=== PATIENT | female | born 1945 | race Caucasian/White ===

== ENCOUNTER 2016-10-13 09:54 | Inpatient (IN) | payer MEDICARE, OTHER ==
[~2016-10-13] VITALS: Ht 167.6 cm; Wt 70.8 kg
[2016-10-13] MEDS ORDERED: HYDROmorphone 1 MG/ML, 1ML ONE ×2 (10:16→11:05)
[2016-10-13] MEDS ORDERED: ONDANSETRON 2MG/ML, 2ML ONE (10:16)
[2016-10-13] MEDS: HYDROmorphone 1 MG/ML, 1ML IVPush PRN ×2 (10:26→11:07)
[2016-10-13] MEDS ORDERED: SODIUM CHLORIDE 0.9% 1,000ML IVBOLUS ONE ×2 (10:30→18:00)
[2016-10-13] MEDS ORDERED: ONDANSETRON 2MG/ML, 2ML IVPush ONE (10:30)
[2016-10-13 10:41] LABS: HEMOGLOBIN 14.3 g/dL (11.7-16.4)
[2016-10-13 10:53] LABS: ASPARTATE AMINO TRANSFERASE 105 U/L (15-37); BLOOD UREA NITROGEN 31 mg/dL (7-18)
[2016-10-13] MEDS ORDERED: OMEP-110 PO (10:53)
[2016-10-13] MEDS ORDERED: FLUO20CA8 PO (10:53)
[2016-10-13] MEDS ORDERED: CA C1TAB64 PO (10:53)
[2016-10-13] MEDS ORDERED: SIMV20TA3 PO (10:53)
[2016-10-13] MEDS ORDERED: OXYC-302 PO (10:53)
[2016-10-13] MEDS ORDERED: ANAS1TAB PO (10:53)
[2016-10-13] MEDS ORDERED: [UNRECOGNIZED DRUG - OTHER] PO (10:53)
[2016-10-13] MEDS ORDERED: ATEN25TA PO (10:53)
[2016-10-13] MEDS ORDERED: LORA1TAB PO (10:53)
[2016-10-13] MEDS ORDERED: TRAZ50TA18 PO (10:53)
[2016-10-13] MEDS ORDERED: vitamin B6 PO (10:53)
[2016-10-13] MEDS ORDERED: PROPOFOL 10 MG/ML, 20ML IVP ONE (12:00)
[2016-10-13] MEDS ORDERED: PROPOFOL 100 ML IV ONE (12:03)
[2016-10-13] MEDS ORDERED: PROPOFOL 10 MG/ML, 20ML ONE (12:04)
[2016-10-13] MEDS ORDERED: SODIUM CHLORIDE 0.9% 1,000 ML IV ONE (13:20)
[2016-10-13] MEDS ORDERED: SODIUM CHLORIDE FLUSH 10ML SYR IVF PRN (13:30)
[2016-10-13] MEDS ORDERED: CEFTRIAXONE PMX 1GM/50ML 50 ML IVPB ONE (14:00)
[2016-10-13] MEDS ORDERED: CEFTRIAXONE PMX 1GM/50ML 50 ML ONE (14:26)
[2016-10-13 14:28] LABS: ICTOTEST NEGATIVE
[2016-10-13] MEDS ORDERED: DILTIAZEM 5 MG/ML, 5ML IV ONE (14:30)
[2016-10-13] MEDS ORDERED: OMNIPAQUE 350 MG/ML, 100ML BOTTLE ONE (15:01)
[2016-10-13 15:04] LABS: IS PT STATUS REG ER OR PRE ER? YES
[2016-10-13] MEDS ORDERED: DILTIAZEM 5 MG/ML, 5ML ONE (15:06)
[2016-10-13] MEDS ORDERED: PROPOFOL 10 MG/ML, 20ML IVPush ONE (15:30)
[2016-10-13] MEDS ORDERED: HEPARIN 5,000 UNITS/ML, 1ML ONE (15:57)
[2016-10-13] MEDS ORDERED: HEPARIN 25,000 UNITS/500ML PMX 500 ML ONE (15:57)
[2016-10-13] MEDS ORDERED: HEPARIN 5,000 UNITS/ML, 1ML IV ONE (16:00)
[2016-10-13] MEDS ORDERED: HEPARIN 5,000 UNITS/ML, 1ML IV PRN (16:00)
[2016-10-13] MEDS ORDERED: ASPIRIN 325 MG TABLET PO SCH (16:00)
[2016-10-13] MEDS: HEPARIN 25,000 UNITS/500ML PMX 500 ML IV PRN (16:59)
[2016-10-13] MEDS ORDERED: ASPIRIN 325 MG TABLET ONE (17:16)
[2016-10-13] MEDS: NOREPINEPHRINE 4 MG in SODIUM CHLORIDE 0.9% 246 ML IV PRN (17:22)
[2016-10-13] MEDS ORDERED: NOREPINEPHRINE 4 MG in SODIUM CHLORIDE 0.9% 246 ML IV PRN (17:30)
[2016-10-13] MEDS ORDERED: ASPIRIN 325 MG TABLET PO ONE (18:14)
[2016-10-13] MEDS ORDERED: PHARMACOKINETIC CONSULTATION MC ONE (20:00)
[2016-10-13] MEDS ORDERED: BISACODYL 10 MG SUPP PR PRN (20:00)
[2016-10-13] MEDS ORDERED: DOCUSATE 100 MG CAPSULE PO PRN (20:00)
[2016-10-13] MEDS ORDERED: PHARMACOKINETIC MONITORING MC PRN (20:00)
[2016-10-13] MEDS ORDERED: ONDANSETRON 2MG/ML, 2ML IVP PRN (20:00)
[2016-10-13] MEDS ORDERED: VANCOMYCIN PER PHARMACY MC PRN (20:00)
[2016-10-13] MEDS ORDERED: POLYETHYLENE GLYCOL 17 GM PACKET PO PRN (20:00)
[2016-10-13] MEDS ORDERED: VANCOMYCIN 1,500 MG in SODIUM CHLORIDE 0.9% 250 ML IV ONE (20:30)
[2016-10-13] MEDS: SODIUM CHLORIDE 0.9% 1,000 ML IV SCH (20:39)
[2016-10-13] MEDS: PIPERACILLIN/TAZO/PMX 3.375GM 50 ML IV SCH (20:39)
[2016-10-13] MEDS: FAMOTIDINE 20 MG/2 ML IV SCH (20:41)
[2016-10-13 20:47] LABS: IS PT STATUS REG ER OR PRE ER? NO
[2016-10-13 20:59] VITALS: BP 96/73
[2016-10-13] MEDS: HYDROmorphone 2 MG/ML, 1ML IV PRN (21:21)
[2016-10-13] MEDS: ATORVASTATIN 40 MG TABLET PO SCH (22:04)
[2016-10-14] MEDS: PIPERACILLIN/TAZO/PMX 3.375GM 50 ML IV SCH ×4 (02:21→20:32)
[2016-10-14] MEDS: HYDROmorphone 2 MG/ML, 1ML IV PRN ×5 (02:45→19:40)
[2016-10-14 03:01] LABS: IS PT STATUS REG ER OR PRE ER? NO
[2016-10-14] MEDS: NOREPINEPHRINE 4 MG in SODIUM CHLORIDE 0.9% 246 ML IV PRN ×3 (03:07→21:54)
[2016-10-14] MEDS: SODIUM CHLORIDE 0.9% 1,000 ML IV SCH ×3 (03:31→19:41)
[2016-10-14 04:57] LABS: HEMOGLOBIN 10.1 g/dL (11.7-16.4)
[2016-10-14 05:03] LABS: ASPARTATE AMINO TRANSFERASE 70 U/L (15-37); BLOOD UREA NITROGEN 30 mg/dL (7-18)
[2016-10-14] MEDS: ASPIRIN 81 MG TABLET EC PO SCH (05:55)
[2016-10-14 06:12] VITALS: BP 107/70
[2016-10-14] MEDS ORDERED: POTASSIUM CHLORIDE 20 MEQ TAB.ER.PRT PO ONE (09:00)
[2016-10-14] MEDS ORDERED: DIGOXIN 0.25 MG/ML, 2ML IVPush ONE (09:00)
[2016-10-14] MEDS: FLUOXETINE 20 MG CAPSULE PO SCH (10:15)
[2016-10-14] MEDS: FAMOTIDINE 20 MG/2 ML IV SCH ×2 (10:15→20:32)
[2016-10-14] MEDS: DIGOXIN 0.25 MG TABLET PO SCH (17:32)
[2016-10-14] MEDS ORDERED: CALCIUM CHLORIDE 13.6 MEQ in SODIUM CHLORIDE 0.9% 100 ML IV ONE (18:30)
[2016-10-14] MEDS: HEPARIN 25,000 UNITS/500ML PMX 500 ML IV PRN (20:31)
[2016-10-14] MEDS: ATORVASTATIN 40 MG TABLET PO SCH (20:32)
[2016-10-15] MEDS: PIPERACILLIN/TAZO/PMX 3.375GM 50 ML IV SCH ×4 (01:01→19:59)
[2016-10-15] MEDS: HYDROmorphone 2 MG/ML, 1ML IV PRN ×3 (01:01→19:59)
[2016-10-15] MEDS: SODIUM CHLORIDE 0.9% 1,000 ML IV SCH ×3 (02:22→19:59)
[2016-10-15 04:45] LABS: ASPARTATE AMINO TRANSFERASE 64 U/L (15-37); BLOOD UREA NITROGEN 19 mg/dL (7-18)
[2016-10-15 05:02] LABS: IS PT STATUS REG ER OR PRE ER? NO
[2016-10-15] MEDS: ASPIRIN 81 MG TABLET EC PO SCH (05:37)
[2016-10-15] MEDS ORDERED: VANCOMYCIN 1,500 MG in SODIUM CHLORIDE 0.9% 250 ML IV SCH (09:00)
[2016-10-15] MEDS ORDERED: MAGNESIUM SULFATE PMX 2GM/50ML 50 ML IV ONE (09:00)
[2016-10-15] MEDS ORDERED: POTASSIUM CHLORIDE 20 MEQ TAB.ER.PRT PO ONE (09:00)
[2016-10-15] MEDS: FAMOTIDINE 20 MG/2 ML IV SCH ×2 (09:03→19:59)
[2016-10-15] MEDS: FLUOXETINE 20 MG CAPSULE PO SCH (09:03)
[2016-10-15] MEDS ORDERED: HYDROcodone/APAP 5/325 TABLET PO PRN (10:30)
[2016-10-15] MEDS ORDERED: CALCIUM CHLORIDE 13.6 MEQ in SODIUM CHLORIDE 0.9% 100 ML IV ONE (11:00)
[2016-10-15] MEDS ORDERED: FENTANYL PF 100 MCG/2ML ONE (14:12)
[2016-10-15] MEDS ORDERED: HEPARIN 1,000 UNITS/ML, 10ML ONE (14:12)
[2016-10-15] MEDS ORDERED: BIVALIRUDIN 250 MG ONE (14:12)
[2016-10-15] MEDS ORDERED: MIDAZOLAM 1 MG/ML, 5ML ONE (14:12)
[2016-10-15] MEDS ORDERED: LIDOCAINE 2%, 20ML ONE (14:12)
[2016-10-15] MEDS ORDERED: VERAPAMIL 2.5 MG/ML, 2ML ONE (14:12)
[2016-10-15] MEDS ORDERED: ACETAMINOPHEN 325 MG TABLET PO PRN (14:30)
[2016-10-15] MEDS: DIGOXIN 0.25 MG TABLET PO SCH (16:43)
[2016-10-15] MEDS: RIVAROXABAN 15 MG TABLET PO SCH (16:43)
[2016-10-15] MEDS: ATORVASTATIN 40 MG TABLET PO SCH (19:59)
[2016-10-16] MEDS: PIPERACILLIN/TAZO/PMX 3.375GM 50 ML IV SCH ×2 (01:04→08:00)
[2016-10-16] MEDS: HYDROmorphone 2 MG/ML, 1ML IV PRN ×4 (01:08→19:49)
[2016-10-16] MEDS: SODIUM CHLORIDE 0.9% 1,000 ML IV SCH (01:09)
[2016-10-16] MEDS: HEPARIN 25,000 UNITS/500ML PMX 500 ML IV PRN (04:10)
[2016-10-16 05:00] LABS: ASPARTATE AMINO TRANSFERASE 53 U/L (15-37); BLOOD UREA NITROGEN 9 mg/dL (7-18)
[2016-10-16 05:20] LABS: HEMOGLOBIN 9.1 g/dL (11.7-16.4)
[2016-10-16] MEDS: ASPIRIN 81 MG TABLET EC PO SCH (05:28)
[2016-10-16] MEDS: CARVEDILOL 3.125 MG TABLET PO SCH ×2 (09:05→18:32)
[2016-10-16] MEDS: FAMOTIDINE 20 MG/2 ML IV SCH ×2 (09:05→19:49)
[2016-10-16] MEDS: FLUOXETINE 20 MG CAPSULE PO SCH (09:05)
[2016-10-16] MEDS: RIVAROXABAN 15 MG TABLET PO SCH ×2 (09:05→18:32)
[2016-10-16] MEDS: HYDROcodone/APAP 5/325 TABLET PO PRN ×3 (10:51→23:32)
[2016-10-16] MEDS ORDERED: POTASSIUM CHLORIDE 20 MEQ TAB.ER.PRT PO ONE (11:30)
[2016-10-16] MEDS: LISINOPRIL 5 MG TABLET PO SCH (13:03)
[2016-10-16] MEDS: DIGOXIN 0.25 MG TABLET PO SCH (18:32)
[2016-10-16] MEDS: ATORVASTATIN 40 MG TABLET PO SCH (19:49)
[2016-10-17] MEDS: HYDROmorphone 2 MG/ML, 1ML IV PRN (03:34)
[2016-10-17 04:31] LABS: HEMOGLOBIN 8.5 g/dL (11.7-16.4)
[2016-10-17 04:46] LABS: BLOOD UREA NITROGEN 5 mg/dL (7-18)
[2016-10-17 04:50] LABS: ASPARTATE AMINO TRANSFERASE 36 U/L (15-37)
[2016-10-17] MEDS: CARVEDILOL 3.125 MG TABLET PO SCH (05:56)
[2016-10-17] MEDS: ASPIRIN 81 MG TABLET EC PO SCH (05:56)
[2016-10-17] MEDS: FLUOXETINE 20 MG CAPSULE PO SCH (08:49)
[2016-10-17] MEDS: RIVAROXABAN 15 MG TABLET PO SCH ×2 (08:49→18:11)
[2016-10-17] MEDS: FAMOTIDINE 20 MG/2 ML IV SCH ×2 (08:49→21:46)
[2016-10-17] MEDS: LISINOPRIL 5 MG TABLET PO SCH (08:50)
[2016-10-17 14:41] VITALS: BP 133/82
[2016-10-17] MEDS: DIGOXIN 0.25 MG TABLET PO SCH (18:11)
[2016-10-17] MEDS: CARVEDILOL 6.25 MG TABLET PO SCH (18:11)
[2016-10-17 18:39] VITALS: BP 161/86
[2016-10-17] MEDS: HYDROcodone/APAP 5/325 TABLET PO PRN (21:46)
[2016-10-17] MEDS: ATORVASTATIN 40 MG TABLET PO SCH (21:46)
[2016-10-18 01:14] VITALS: BP 130/82
[2016-10-18] MEDS: ASPIRIN 81 MG TABLET EC PO SCH (06:16)
[2016-10-18] MEDS: CARVEDILOL 6.25 MG TABLET PO SCH ×2 (06:18→17:16)
[2016-10-18 06:47] VITALS: BP 135/82
[2016-10-18] MEDS: RIVAROXABAN 15 MG TABLET PO SCH ×2 (08:58→17:16)
[2016-10-18] MEDS: FLUOXETINE 20 MG CAPSULE PO SCH (08:58)
[2016-10-18] MEDS: FAMOTIDINE 20 MG/2 ML IV SCH ×2 (08:58→20:10)
[2016-10-18] MEDS: LISINOPRIL 5 MG TABLET PO SCH (08:58)
[2016-10-18 13:16] VITALS: BP 140/87
[2016-10-18 17:15] VITALS: BP 150/92
[2016-10-18] MEDS: DIGOXIN 0.25 MG TABLET PO SCH (17:16)
[2016-10-18 19:41] VITALS: BP 144/85
[2016-10-18] MEDS: LISINOPRIL 10 MG TABLET PO SCH (20:10)
[2016-10-18] MEDS: ATORVASTATIN 40 MG TABLET PO SCH (20:10)
[2016-10-18] MEDS ORDERED: LISINOPRIL 5 MG TABLET PO SCH (21:00)
[2016-10-18] MEDS: TRAZODONE 100MG TABLET PO PRN (23:59)
[2016-10-19 03:39] VITALS: BP 140/85
[2016-10-19 05:58] LABS: HEMOGLOBIN 9.8 g/dL (11.7-16.4)
[2016-10-19 06:10] LABS: BLOOD UREA NITROGEN 3 mg/dL (7-18)
[2016-10-19] MEDS: CARVEDILOL 6.25 MG TABLET PO SCH ×2 (06:46→17:05)
[2016-10-19] MEDS: ASPIRIN 81 MG TABLET EC PO SCH (06:46)
[2016-10-19 07:46] VITALS: BP 144/87
[2016-10-19] MEDS: LISINOPRIL 10 MG TABLET PO SCH ×2 (09:34→21:01)
[2016-10-19] MEDS: FAMOTIDINE 20 MG/2 ML IV SCH (09:34)
[2016-10-19] MEDS: RIVAROXABAN 15 MG TABLET PO SCH ×2 (09:34→17:05)
[2016-10-19] MEDS: FLUOXETINE 20 MG CAPSULE PO SCH (09:34)
[2016-10-19] MEDS ORDERED: POTASSIUM CHLORIDE 20 MEQ TAB.ER.PRT PO ONE (12:30)
[2016-10-19 14:28] VITALS: BP 124/82
[2016-10-19] MEDS: DIGOXIN 0.25 MG TABLET PO SCH (17:05)
[2016-10-19] MEDS: HYDROcodone/APAP 5/325 TABLET PO PRN (17:06)
[2016-10-19 19:06] VITALS: BP 117/71
[2016-10-19] MEDS: TRAZODONE 100MG TABLET PO PRN (21:00)
[2016-10-19] MEDS: ATORVASTATIN 40 MG TABLET PO SCH (21:01)
[2016-10-20 01:07] VITALS: BP 139/82
[2016-10-20] MEDS: HYDROcodone/APAP 5/325 TABLET PO PRN ×2 (02:24→15:37)
[2016-10-20] MEDS: ASPIRIN 81 MG TABLET EC PO SCH (06:26)
[2016-10-20] MEDS: CARVEDILOL 6.25 MG TABLET PO SCH ×2 (06:26→17:31)
[2016-10-20 06:30] VITALS: BP 120/65
[2016-10-20] MEDS: FLUOXETINE 20 MG CAPSULE PO SCH (08:29)
[2016-10-20] MEDS: LISINOPRIL 10 MG TABLET PO SCH ×2 (08:29→19:48)
[2016-10-20] MEDS: RIVAROXABAN 15 MG TABLET PO SCH ×2 (08:29→17:31)
[2016-10-20 11:16] VITALS: BP 121/77
[2016-10-20 13:19] VITALS: BP 126/78
[2016-10-20] MEDS: DIGOXIN 0.25 MG TABLET PO SCH (17:31)
[2016-10-20 18:45] VITALS: BP 106/69
[2016-10-20] MEDS: CHOLESTYRAMINE 4GM PACKET PO SCH (19:48)
[2016-10-20] MEDS: ATORVASTATIN 40 MG TABLET PO SCH (19:48)
[2016-10-20] MEDS: TRAZODONE 100MG TABLET PO PRN (19:55)
[2016-10-21 02:10] VITALS: BP 128/76
[2016-10-21 07:10] VITALS: BP 138/71
[2016-10-21] MEDS: RIVAROXABAN 15 MG TABLET PO SCH ×2 (08:31→17:41)
[2016-10-21] MEDS: ASPIRIN 81 MG TABLET EC PO SCH (08:31)
[2016-10-21] MEDS: CARVEDILOL 6.25 MG TABLET PO SCH ×2 (08:31→17:42)
[2016-10-21] MEDS: LISINOPRIL 10 MG TABLET PO SCH ×2 (08:32→20:50)
[2016-10-21] MEDS: CHOLESTYRAMINE 4GM PACKET PO SCH ×2 (08:32→20:52)
[2016-10-21] MEDS: FLUOXETINE 20 MG CAPSULE PO SCH (08:32)
[2016-10-21] MEDS: HYDROcodone/APAP 5/325 TABLET PO PRN (14:15)
[2016-10-21 15:33] VITALS: BP 132/64
[2016-10-21] MEDS: DIGOXIN 0.25 MG TABLET PO SCH (17:41)
[2016-10-21 19:05] VITALS: BP 126/60
[2016-10-21] MEDS: ATORVASTATIN 40 MG TABLET PO SCH (20:50)
[2016-10-21] MEDS: TRAZODONE 100MG TABLET PO PRN (20:50)
[2016-10-22 01:45] VITALS: BP 131/80
[2016-10-22 07:40] VITALS: BP 169/86
[2016-10-22] MEDS: CARVEDILOL 6.25 MG TABLET PO SCH ×2 (07:52→17:30)
[2016-10-22] MEDS: FLUOXETINE 20 MG CAPSULE PO SCH (07:53)
[2016-10-22] MEDS: LISINOPRIL 10 MG TABLET PO SCH ×2 (07:53→19:51)
[2016-10-22] MEDS: RIVAROXABAN 15 MG TABLET PO SCH ×2 (07:53→17:29)
[2016-10-22] MEDS: ASPIRIN 81 MG TABLET EC PO SCH (07:53)
[2016-10-22] MEDS: CHOLESTYRAMINE 4GM PACKET PO SCH ×2 (07:55→19:52)
[2016-10-22] MEDS: OMEPRAZOLE 20 MG CAPSULE.DR PO SCH ×2 (10:24→19:52)
[2016-10-22] MEDS ORDERED: POTASSIUM CHLORIDE 40 MEQ in SODIUM CHLORIDE 0.9% 500 ML IV ONE (12:00)
[2016-10-22 14:45] VITALS: BP 136/83
[2016-10-22] MEDS: DIGOXIN 0.25 MG TABLET PO SCH (17:29)
[2016-10-22 18:34] VITALS: BP 118/68
[2016-10-22] MEDS: ATORVASTATIN 40 MG TABLET PO SCH (19:51)
[2016-10-22] MEDS: TRAZODONE 100MG TABLET PO PRN (21:25)
[2016-10-23 01:18] VITALS: BP 140/83
[2016-10-23 05:22] LABS: ASPARTATE AMINO TRANSFERASE 21 U/L (15-37); BLOOD UREA NITROGEN 9 mg/dL (7-18)
[2016-10-23] MEDS: ASPIRIN 81 MG TABLET EC PO SCH (06:02)
[2016-10-23] MEDS: CARVEDILOL 6.25 MG TABLET PO SCH ×2 (06:02→16:58)
[2016-10-23] MEDS: LISINOPRIL 10 MG TABLET PO SCH ×2 (08:02→20:59)
[2016-10-23] MEDS: CHOLESTYRAMINE 4GM PACKET PO SCH ×2 (08:02→21:00)
[2016-10-23] MEDS: RIVAROXABAN 15 MG TABLET PO SCH ×2 (08:02→16:59)
[2016-10-23] MEDS: OMEPRAZOLE 20 MG CAPSULE.DR PO SCH ×2 (08:02→20:59)
[2016-10-23] MEDS: FLUOXETINE 20 MG CAPSULE PO SCH (08:02)
[2016-10-23 09:08] VITALS: BP 136/72
[2016-10-23] MEDS: HYDROcodone/APAP 5/325 TABLET PO PRN ×3 (10:52→18:30)
[2016-10-23 12:37] VITALS: BP 114/72
[2016-10-23] MEDS: DIGOXIN 0.25 MG TABLET PO SCH (16:59)
[2016-10-23 20:00] VITALS: BP 116/61
[2016-10-23] MEDS: TRAZODONE 100MG TABLET PO PRN (20:59)
[2016-10-23] MEDS: ATORVASTATIN 40 MG TABLET PO SCH (21:01)
[2016-10-24 02:00] VITALS: BP 97/58
[2016-10-24 06:10] VITALS: BP 111/52
[2016-10-24] MEDS: ASPIRIN 81 MG TABLET EC PO SCH (06:13)
[2016-10-24] MEDS: CARVEDILOL 6.25 MG TABLET PO SCH ×2 (06:19→17:49)
[2016-10-24 07:32] VITALS: BP 112/71
[2016-10-24] MEDS: RIVAROXABAN 15 MG TABLET PO SCH ×2 (08:55→17:50)
[2016-10-24] MEDS: LISINOPRIL 10 MG TABLET PO SCH ×2 (08:56→21:52)
[2016-10-24] MEDS: OMEPRAZOLE 20 MG CAPSULE.DR PO SCH ×2 (08:56→21:06)
[2016-10-24] MEDS: FLUOXETINE 20 MG CAPSULE PO SCH (08:56)
[2016-10-24] MEDS: CHOLESTYRAMINE 4GM PACKET PO SCH ×3 (08:57→21:52)
[2016-10-24] MEDS: HYDROcodone/APAP 5/325 TABLET PO PRN ×4 (09:00→21:50)
[2016-10-24 14:16] VITALS: BP 116/74
[2016-10-24] MEDS: LACTOBACILLUS CHEW TABLET PO SCH ×2 (16:12→21:50)
[2016-10-24] MEDS: DIGOXIN 0.25 MG TABLET PO SCH (17:49)
[2016-10-24 20:00] VITALS: BP 101/63
[2016-10-24] MEDS: ATORVASTATIN 40 MG TABLET PO SCH (21:06)
[2016-10-24] MEDS: TRAZODONE 100MG TABLET PO PRN (21:07)
[2016-10-25 02:00] VITALS: BP 105/53
[2016-10-25] MEDS: CARVEDILOL 6.25 MG TABLET PO SCH (06:00)
[2016-10-25] MEDS: ASPIRIN 81 MG TABLET EC PO SCH (06:43)
[2016-10-25 07:18] VITALS: BP 137/74
[2016-10-25] MEDS: CHOLESTYRAMINE 4GM PACKET PO SCH (08:00)
[2016-10-25] MEDS: RIVAROXABAN 15 MG TABLET PO SCH (08:38)
[2016-10-25] MEDS: FLUOXETINE 20 MG CAPSULE PO SCH (08:39)
[2016-10-25] MEDS: LISINOPRIL 10 MG TABLET PO SCH (08:39)
[2016-10-25] MEDS: OMEPRAZOLE 20 MG CAPSULE.DR PO SCH (08:39)
[2016-10-25] MEDS: LACTOBACILLUS CHEW TABLET PO SCH (08:39)
[2016-10-25] MEDS ORDERED: CHOLESTYRAMINE 4GM PACKET PO SCH (09:00)
[2016-10-25] MEDS ORDERED: LISI-167 PO (09:01)
[2016-10-25] MEDS ORDERED: ACID1TAB7 PO (09:01)
[2016-10-25] MEDS ORDERED: DIGO250T PO (09:01)
[2016-10-25] MEDS ORDERED: RIVA15TA PO (09:01)
[2016-10-25] MEDS ORDERED: ASPI-621 PO (09:01)
[2016-10-25] MEDS ORDERED: ATOR40TA78 PO (09:01)
[2016-10-25] MEDS ORDERED: CHOL4PAC2 PO (09:01)
[2016-10-25] MEDS ORDERED: BISA10SU65 PR (09:01)
[2016-10-25] MEDS ORDERED: CARV6.2512 PO (09:01)
[2016-10-25] MEDS ORDERED: PNEUMOCOCCAL 23 VACCINE IM-VACC ONE (13:00)
== END 2016-10-25 14:00 | DRG 280 ==
LOC: ED 11:43 → EDIP 13:20 → CCU 18:10 → CSU 10-17 06:50 → 5SO 10-17 14:33 → 4WST 10-22 18:28
PROVIDERS: ADMIT Internal Medicine; ATTEND Internal Medicine
PROC: 06HM33Z Insertion of Infusion Device into Right Femoral Vein, Percutaneous Approach (ICD-10-PCS; 2016-10-13)
PROC: B54BZZA Ultrasonography of Right Lower Extremity Veins, Guidance (ICD-10-PCS; 2016-10-13)
PROC: 0T9B70Z Drainage of Bladder with Drainage Device, Via Natural or Artificial Opening (ICD-10-PCS; 2016-10-13)
PROC: 4A023N7 Measurement of Cardiac Sampling and Pressure, Left Heart, Percutaneous Approach (ICD-10-PCS; principal; 2016-10-15)
PROC: B2111ZZ Fluoroscopy of Multiple Coronary Arteries using Low Osmolar Contrast (ICD-10-PCS; 2016-10-15)
PROC: B2151ZZ Fluoroscopy of Left Heart using Low Osmolar Contrast (ICD-10-PCS; 2016-10-15)
DX: R57.0 Cardiogenic shock (principal); I21.4 Non-ST elevation (NSTEMI) myocardial infarction; E43 Unspecified severe protein-calorie malnutrition; I26.99 Other pulmonary embolism without acute cor pulmonale; N17.0 Acute kidney failure with tubular necrosis; T84.021A Dislocation of internal left hip prosthesis, initial encounter; E87.2 Acidosis; I48.92 Unspecified atrial flutter; M62.82 Rhabdomyolysis; I51.81 Takotsubo syndrome; I95.9 Hypotension, unspecified; D64.9 Anemia, unspecified; E78.5 Hyperlipidemia, unspecified; E86.0 Dehydration; I25.5 Ischemic cardiomyopathy; I48.91 Unspecified atrial fibrillation; I50.9 Heart failure, unspecified; K21.9 Gastro-esophageal reflux disease without esophagitis; R09.02 Hypoxemia; W06.XXXA Fall from bed, initial encounter; Y79.2 Prosthetic and other implants, materials and accessory orthopedic devices associated with adverse incidents; F41.9 Anxiety disorder, unspecified; Z51.5 Encounter for palliative care; I11.0 Hypertensive heart disease with heart failure; Z96.643 Presence of artificial hip joint, bilateral; Z96.653 Presence of artificial knee joint, bilateral; Z79.82 Long term (current) use of aspirin; Z79.899 Other long term (current) drug therapy; Z85.3 Personal history of malignant neoplasm of breast; Z86.711 Personal history of pulmonary embolism; Z87.891 Personal history of nicotine dependence; Z90.12 Acquired absence of left breast and nipple; Z90.710 Acquired absence of both cervix and uterus; Z92.21 Personal history of antineoplastic chemotherapy; Z68.25 Body mass index [BMI] 25.0-25.9, adult; Z79.01 Long term (current) use of anticoagulants; W18.30XA Fall on same level, unspecified, initial encounter
CPT/HCPCS: 27265; 36415; 36556; 71275; 80048; 80053; 80061; 81001; 82330; 82550; 83605; 83735; 84100; 84145; 84484; 85025; 85520; 85610; 87040; 87081; 87086; 87324; 87328; 87329; 89055; 90732; 93005; 93306; 93458; 93970; 96361; 96365; 96366; 96368; 96375; 96376; C1760; C1894; J0583; J0696; J1170; J1644; J2250; J2405; J2543; J2704; J3010; J3370; J3480; J3490; Q9967; C1751; J1160; J3475; J7030; J7040; J7050; S0028